=== PATIENT | female | born 1985 | race Caucasian/White ===

== ENCOUNTER 2017-06-28 11:48 | Day surgery (SDC) | payer BC ==
[~2017-06-28] VITALS: Ht 160 cm; Wt 63.3 kg
[~2017-06-28 11:48] MED LIST: CELEXA20 MG PO; DEPO-PROVERA; DEPO-SUBQ104 MG/0.6 SC; FLEXERIL10 MG PO; LOESTRIN 1/21 TABLET PO; NAPROSYN500 MG PO; PROZAC20 MG PO
[2017-06-28 12:35] VITALS: BP 115/72
[2017-06-28 12:44] VITALS: BP 115/72
[2017-06-28] MEDS ORDERED: NORCO 5/3251 TABLET PO (16:36)
[2017-06-28 19:58] VITALS: BP 115/70
[2017-06-29 00:35] VITALS: BP 131/69
[2017-06-29 03:15] VITALS: BP 108/61
[2017-06-29 04:07] VITALS: BP 110/64
[2017-06-29 08:02] VITALS: BP 105/57
[2017-06-29 08:43] VITALS: BP 102/62
[2017-06-29 10:49] VITALS: BP 112/70
[2017-06-29] MEDS ORDERED: SYNTHROID100 MCG PO (11:26)
== END 2017-06-29 12:29 | disposition home or self-care (01) ==
LOC: SDC 11:48 → 2SOUTH 13:10 → ENRESERV 14:54 → 2SOUTH 16:16 → 5EAST 19:17
DX: E04.1 Nontoxic single thyroid nodule (principal); E06.3 Autoimmune thyroiditis; Z80.8 Family history of malignant neoplasm of other organs or systems; K50.90 Crohn's disease, unspecified, without complications; Z88.2 Allergy status to sulfonamides; Z80.3 Family history of malignant neoplasm of breast; Z80.49 Family history of malignant neoplasm of other genital organs; Z82.49 Family history of ischemic heart disease and other diseases of the circulatory system
CPT/HCPCS: 82308 90; 82310; 88307; G0378; J0131; J0330; J0690; J1100; J2250; J2405; J2550; J2710; J3010; J7120; S0020